=== PATIENT | male | born 2000 | race Two or more races ===

== ENCOUNTER 2020-10-22 20:17 | Emergency (ER) | payer SELFPAY ==
--- NOTE | 2020-10-22 20:45 | EDM.PDOC ---
ED HPI GENERAL MEDICAL PROBLEM - General Chief Complaint: Skin Complaint Stated Complaint: BUG BITES RT LEG, SWELLING Time Seen by Provider: 10/22/20 20:23 Source of Information: Reports: Patient History Limitations: Reports: No Limitations - History of Present Illness INITIAL COMMENTS - FREE TEXT/NARRATIVE: Presents reporting "infected bites". The patient states that 3 days ago he noted some firm red tender spots on the right lower leg and 2 on the right thigh. They are hard tender and red and not draining. He does not recall any injuries or bites. He does not know how he got them. He is otherwise healthy without any chronic medical problems and takes no medications. right leg Pain Score (Numeric/FACES): 9 - Related Data Allergies Allergy/AdvReac Type Severity Reaction Status Date / Time No Known Allergies Allergy Verified 10/22/20 20:28 Home Meds: Home Meds Clindamycin HCl 1 cap PO TID #30 capsule 10/22/20 [Rx] Mupirocin [Centany] 1 gm TP BID #1 tube 10/22/20 [Rx] Past Medical History HEENT History: Reports: None Cardiovascular History: Reports: None Respiratory History: Reports: None Gastrointestinal History: Reports: None Genitourinary History: Reports: None Musculoskeletal History: Reports: None Neurological History: Reports: None Psychiatric History: Reports: None Endocrine/Metabolic History: Reports: None Insulin Pump 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 ED EXAM, SKIN/RASH Exam: See Below Exam Limited By: No Limitations General Appearance: Alert, No Apparent Distress Ears: Normal External Exam Nose: Normal Inspection Throat/Mouth: Normal Inspection Head: Atraumatic, Normocephalic Neck: Normal Inspection Respiratory/Chest: No Respiratory Distress Cardiovascular: Normal Peripheral Pulses, Regular Rate, Rhythm, No Edema GI/Abdominal: Soft Neurological: Alert, Normal Cognition Psychiatric: Normal Affect, Normal Mood Skin: Warm, Dry, Intact, Normal Color, No Rash, Other (Lateral calf 7 x 5cm erythematous, firm, dry, swollen spot with a small dry scab in the center. Two additional on the right upper thigh, one 2 cm round, another 1 cm round, dry, pink, no swelling.) Associated features: Tenderness Lymphatic: No Adenopathy Course - Vital Signs Last Recorded V/S: Last Vital Signs Temp 36.2 C 10/22/20 20:25 Pulse 96 10/22/20 20:25 Resp 18 10/22/20 20:25 BP 131/89 10/22/20 20:25 Pulse Ox 97 10/22/20 20:25 Departure - Departure Time of Disposition: 20:48 Disposition: Home, Self-Care 01 Condition: Good Clinical Impression: Cellulitis Qualifiers: Site of cellulitis: extremity Site of cellulitis of extremity: lower extremity Laterality: right Qualified Code(s): L03.115 - Cellulitis of right lower limb - Discharge Information Instructions: Cellulitis, Adult, MRSA Infection, Self-Care, Adult Referrals: PCP,None [Primary Care Provider] - [facility] [Outside] [facility] [Outside] Additional Instructions: The following information is given to patients seen in the emergency department who are being discharged to home. This information is to outline your options for follow-up care. We provide all patients seen in our emergency department with a follow-up referral. The need for follow-up, as well as the timing and circumstances, are variable depending upon the specifics of your emergency department visit. If you don't have a primary care physician on staff, we will provide you with a referral. We always advise you to contact your personal physician following an emergency department visit to inform them of the circumstance of the visit and for follow-up with them and/or the need for any referrals to a consulting specialist. The emergency department will also refer you to a specialist when appropriate. This referral assures that you have the opportunity for follow-up care with a specialist. All of these measure are taken in an effort to provide you with optimal care, which includes your follow-up. Under all circumstances we always encourage you to contact your private physician who remains a resource for coordinating your care. When calling for follow-up care, please make the office aware that this follow-up is from your recent emergency room visit. If for any reason you are refused follow-up, please contact the Emergency Departme nt at and asked to speak to the emergency department charge nurse. Kit Doss [facility] [address] [place] [id number] 1. Take your antibiotic three times daily starting tonight. 2. Purchase chlorhexidine (Hibiclens) from the pharmacy and shower with it daily, taking care to scrub the groin and armpits well. 3. Apply mupirocin to scabs twice daily and with a clean, cotton tipped applicator to the posterior nares once daily. 4. Wash your clothing on the hot setting and dry in the dryer. Wash your towels and clothing each day. Sepsis Event Note (ED) - Evaluation Sepsis Screening Result: No Definite Risk - Focused Exam Vital Signs: Vital Signs Temp Pulse Resp BP Pulse Ox 10/22/20 20:25 36.2 C 96 18 131/89 97
== END 2020-10-22 21:10 | disposition home or self-care (01) ==
LOC: MW.ED 20:17
DX: L03.115 Cellulitis of right lower limb (principal)
CPT/HCPCS: 99283

== ENCOUNTER 2020-12-30 16:42 | Emergency (ER) | payer OTHER ==
--- NOTE | 2020-12-30 18:21 | CR ---
Indication: Knee pain after falling Technique: Three views left knee Comparison: None Findings: Bones: Lateral displacement of the patella with a mildly comminuted fracture of the medial aspect of the patella. Joint spaces: Unremarkable. Soft tissues: Moderate to large lipohemarthrosis. Soft tissue swelling overlying the knee. Impression: Lateral displacement of the patella. Mildly comminuted fracture of the medial aspect of the patella. Moderate to large lipohemarthrosis. Dictated by Debbie Turner MD @ Dec 30 2020 6:18PM Signed by Dr. Debbie Turner @ Dec 30 2020 6:20PM
[2020-12-30] MEDS ORDERED: HYDROmorphone 1 MG/ML Syringe IVPUSH ONE ×2 (19:06→20:15)
[2020-12-30] MEDS ORDERED: Bupivacaine 0.5% 10 ML SDV ONE (20:42)
[2020-12-30] MEDS ORDERED: Bupivacaine 0.5% 10 ML SDV INJECT ONE ×2 (20:42→20:43)
--- NOTE | 2020-12-30 21:39 | EDM.PDOC ---
ED HPI GENERAL MEDICAL PROBLEM - General Chief Complaint: Lower Extremity Injury/Pain Stated Complaint: LT KNEE INJURY Time Seen by Provider: 12/30/20 19:03 - History of Present Illness INITIAL COMMENTS - FREE TEXT/NARRATIVE: CHIEF COMPLAINT(S): Left knee pain HISTORY OF PRESENT ILLNESS: This is a 20-year-old man and without any significant past medical history who comes to the emergency department with a chief complaint of knee left knee pain. The patient states that he fell on his left knee and felt his kneecap dislocate. He states that he was walking on a rib for and slipped when this happened. He denies any numbness or tingling of his lower extremity but states that he does have 10 out of 10 pain on his knee. He states that there is swelling. He has not yet tried any pain medication. He states that any movement hurts his left knee. He denies any relieving factors. He denies any other injury. He denies any head injury, loss of consciousness, chest pain, shortness of breath, abdominal pain, nausea or vomiting. He denies any use of oral anticoagulation. REVIEW OF SYSTEMS: Constitutional: Denies fever, chills. Eyes: Denies eye pain Ears, Nose, Mouth, & Throat: Denies earache Cardiovascular: Denies chest pain Respiratory: Denies shortness of breath Gastrointestinal: Denies Nausea, vomiting, diarrhea, hematochezia. Genitourinary: Denies hematuria Skin:Denies a rash MSK: Left knee pain and injury Neurological: Denies blurred vision, numbness, tingling, weakness Psychiatric: Denies depression PAST MEDICAL HISTORY: As per history of present illness and as reviewed below otherwise noncontributory. SURGICAL HISTORY: As per history of present illness and as reviewed below otherwise noncontributory. SOCIAL HISTORY: As per history of present illness and as reviewed below otherwise noncontributory. FAMILY HISTORY: As per history of present illness and as reviewed below otherwise noncontributory. EXAMINATION OF ORGAN SYSTEMS/BODY AREAS: Constitutional: Blood pressure was 144/85, heart rate 89, respiratory rate 18 with an oxygen saturation 9 9% on room air. Temperature 36.4 General: Young man who appears to be in a moderate amount of pain Psychiatric: Appropriate mood and affect. Eyes: No scleral icterus or conjunctival erythema ENMT: Moist mucous membranes. No pharyngeal erythema Cardiovascular: Regular, rate, and rhythm. No gallops, murmurs, or rubs. Bilateral upper extremity and lower extremity pulses symmetric and intact. No peripheral edema. No JVD. Respiratory: Lungs clear to auscultation bilaterally. No wheezes, rales, or rhonchi. Gastrointestinal: Soft, non-tender, non-distended. Normoactive bowel sounds Genitourinary: No suprapubic tenderness Musculoskeletal: Range of motion limited at the left knee secondary to pain. There is significant swelling of the left knee. The patella does appear to be mildly displaced to the left however it is not completely dislocated. There is no posterior knee pain or bruising. However full examination is limited secondary to pain Skin: No lesions or abrasions. Neurological: Alert, GCS 15 distal sensation is intact MEDICAL DECISION MAKING AND COURSE IN THE ED WITH INTERPRETATION/REVIEW OF DIAGNOSTIC STUDIES: This is a 20-year-old man and without any significant past medical history who comes to the emergency department with left knee injury with possible patellar dislocation who is in a moderate amount of pain. At this time we will provide the patient with 1 mg of Dilaudid. We will obtain a left knee x-ray. I do not believe any other imaging is indicated. There is significant delay in obtaining x-ray as the emergency department was busy. Therefore I provided the patient with the Norfolk by mouth for continued pain. The radiological images were viewed by myself along with reading the report from the radiologist. Left knee x-ray reveals lateral displacement of the patella with a mildly comminuted fracture of the medial aspect of the patella. Moderate to large lipohemarthrosis. After imaging I did discuss results with the patient. I discussed them that we would need to try and relocate as much of the patella into its normal position. Therefore I did provide the patient with an additional dose of Dilaudid. At this time given the significant swelling I did offer arthrocentesis and hematoma block. He was amenable to this plan. On my reassessment the patient was able to hold his leg in extension and was able to flex mildly however there was significant amount of pain. ARTHROCENTESIS PROCEDURE NOTE Consent for Arthrocentesis: Risks and benefits discussed with patient and verbal consent obtained Site marked and prepared in sterile fashion. Wheel of bupivacaine placed. Bupivacaine then introduced into the joint space. 20 cc of blood were removed from the joint space. Complications: The patient tolerated the procedure well without any known complications Patella reduction Holding the leg in extension the lateral side of the patella was pressed medially with force it appeared to be closer to midline. After reduction we did place a knee brace for immobilization. I contacted Dr. Alvarenga at [facility] in [place] given that we do not have any orthopedic on-call. He recommended knee brace and follow-up outpatient. I did discuss this with the patient. Post reduction the patient continued to remain neurovascularly intact with palpable DP and PT pulses in the left lower extremity with distal sensation intact. He is to use Tylenol and Motrin and Norfolk for pain control. He is to follow-up with orthopedics within 3 to 5 days. He was amenable discharge at this time and had no further questions DISPOSITION: The patient was discharged home in stable condition. The patient will follow up with orthopedics within 3 to 5 days CONDITION: Fair PROCEDURES: Arthrocentesis of the left knee, patellar dislocation reduction FINAL IMPRESSION(S)/DIAGNOSES: 1. Acute left patellar dislocation 2. Acute left mildly comminuted fracture of the medial aspect of the patella Leodan Hdz M.D. DME: Knee immobilizer of the left Indication: Comminuted fracture of the patella Benefit: Immobilization Duration: Until follow-up with orthopedics DME: Crutches Indication: Nonweightbearing secondary to comminuted fracture of the patella Benefit: Nonweightbearing Duration: Until follow-up with orthopedics Left knee Pain Score (Numeric/FACES): 10 - Related Data Allergies Allergy/AdvReac Type Severity Reaction Status Date / Time No Known Allergies Allergy Verified 12/30/20 17:06 Home Meds: Home Meds Acetaminophen [Tylenol Extra Strength] 500 mg PO Q6HR #28 tablet 12/30/20 [Rx] Acetaminophen/HYDROcodone [Norfolk 325-5 MG] 1 tab PO Q6H PRN #10 tablet 12/30/20 [Rx] Ibuprofen 400 mg PO Q6HR #28 tablet 12/30/20 [Rx] Past Medical History HEENT History: Reports: None Cardiovascular History: Reports: None Respiratory History: Reports: None Gastrointestinal History: Reports: None Genitourinary History: Reports: None Musculoskeletal History: Reports: None Neurological History: Reports: None Psychiatric History: Reports: None Endocrine/Metabolic History: Reports: None Insulin 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 Hematologic History: Reports: None Immunologic History: Reports: None Oncologic (Cancer) History: Reports: None Dermatologic History: Reports: None - Infectious Disease History Infectious Disease History: Reports: None - Past Surgical History Head Surgeries/Procedures: Reports: None Social & Family History - Family History Family Medical History: No Pertinent Family History - Tobacco Use Tobacco Use Status *Q: Never Tobacco User - Caffeine Use Caffeine Use: Reports: None - Recreational Drug Use Recreational Drug Use: No Review of Systems - Review of Systems Review Of Systems: See Below ED EXAM, GENERAL - Physical Exam Exam: See Below Course - Vital Signs Last Recorded V/S: Last Vital Signs Temp 37 C 12/30/20 21:48 Pulse 72 12/30/20 21:48 Resp 16 12/30/20 21:48 BP 132/80 12/30/20 21:48 Pulse Ox 99 12/30/20 21:48 - Orders/Labs/Meds Meds: Medications Discontinued Medications Generic Name Dose Route Start Last Admin Trade Name Freq PRN Reason Stop Dose Admin Hydrocodone Bitart/Acetaminophen 2 tab 12/30/20 21:40 12/30/20 21:47 Norfolk 325-5 Mg PO 12/30/20 21:41 2 tab ONETIME ONE Administration Bupivacaine HCl 10 ml 12/30/20 20:43 12/30/20 20:43 Sensorcaine-Mpf 0.5% INJECT 12/30/20 20:44 10 ml ONETIME ONE Administration Bupivacaine HCl 10 ml 12/30/20 20:42 12/30/20 20:51 Sensorcaine-Mpf 0.5% INJECT 12/30/20 20:43 Not Given ONETIME ONE Bupivacaine HCl Confirm 12/30/20 20:42 12/30/20 20:51 Sensorcaine-Mpf 0.5% Administered 12/30/20 20:43 Not Given Dose 10 ml .ROUTE .STK-MED ONE Hydromorphone HCl 1 mg 12/30/20 19:06 12/30/20 19:10 Dilaudid IVPUSH 12/30/20 19:07 1 mg ONETIME ONE Administration Hydromorphone HCl 1 mg 12/30/20 20:15 12/30/20 20:43 Dilaudid IVPUSH 12/30/20 20:16 1 mg ONETIME ONE Administration Departure - Departure Time of Disposition: 21:38 Disposition: Home, Self-Care 01 Condition: Fair Clinical Impression: Patellar fracture, S/P arthrocentesis - Discharge Information *PRESCRIPTION DRUG MONITORING PROGRAM REVIEWED*: No *COPY OF PRESCRIPTION DRUG MONITORING REPORT IN PATIENT VIKTOR: No Prescriptions: Ibuprofen 400 mg PO Q6HR #28 tablet Acetaminophen/HYDROcodone [Norfolk 325-5 MG] 1 tab PO Q6H PRN #10 tablet PRN Reason: Breakthrough Pain Acetaminophen [Tylenol Extra Strength] 500 mg PO Q6HR #28 tablet Instructions: Crutch Use, Adult, [id number], How to Use a Knee Immobilizer, [id number], Pain Medicine Instructions, [id number], Patellar Fracture, Adult Referrals: PCP,None [Primary Care Provider] - Forms: ED Department Discharge Additional Instructions: You were evaluated today on an emergent basis. At this time you do have a fracture through your kneecap. There was a significant amount of swelling. For the swelling I do recommend you keep your leg elevated and use ice 20 minutes 4 times a day. Please use Tylenol and Motrin as described below. You may use Norfolk for severe pain. I would like you to follow-up with orthopedics within 1 week. If you have any new or worsening symptoms please return to the emergency department. We did do a knee injection for pain control and to remove some of the blood. Please keep the area clean. If you notice any worsening pain or redness please return to the emergency department. Please use: Tylenol 500mg every 6 hours (DO NOT TAKE MORE THAN 4000mg in 1 day) Ibuprofen 400mg every 6 hours (Take with food as it can cause ulcers, GI upset) Example schedule: 8:00 AM (Tylenol 500mg) 11:00 AM (Ibuprofen 400mg) 2:00 PM (Tylenol 500mg) 5:00 PM (Ibuprofen 400mg) In addition to Tylenol and Motrin you may use over the counter creams such as Voltaren Cream or Lidocaine Cream (Lidoderm) as needed 4 times a day for symptomatic relief. Ice the area 20 minutes 4 times per day [facility] [address], [address] [place] [address] The patient is informed of any results of their evaluation and diagnostic workup and all questions are answered. They are given discharge instructions and return precautions. The patient is stable for discharge. The patient states they understand and agree with the plan and that they will return if their symptoms get worse or if they have any new concerns. The following information is given to patients seen in the emergency department who are being discharged to home. This information is to outline your options for follow-up care. We provide all patients seen in our emergency department with a follow-up referral. The need for follow-up, as well as the timing and circumstances, are variable depending upon the specifics of your emergency department visit. If you don't have a primary care physician on staff, we will provide you with a referral. We always advise you to contact your personal physician following an emergency department visit to inform them of the circumstance of the visit and for follow-up with them and/or the need for any referrals to a consulting specialist. The emergency department will also refer you to a specialist when appropriate. This referral assures that you have the opportunity for follow-up care with a specialist. All of these measure are taken in an effort to provide you with optimal care, which includes your follow-up. Under all circumstances we always encourage you to contact your private physician who remains a resource for coordinating your care. When calling for follow-up care, please make the office aware that this follow-up is from your recent emergency room visit. If for any reason you are refused follow-up, please contact the [facility] Emergency Department at and asked to speak to the emergency department charge nurse. Sepsis Event Note (ED) - Evaluation Sepsis Screening Result: No Definite Risk
[2020-12-30] MEDS ORDERED: Acetaminophen/HYDROcodone 325-5 MG Tab PO ONE (21:40)
== END 2020-12-30 21:50 | disposition home or self-care (01) ==
LOC: MW.ED 16:42
DX: S82.042A Displaced comminuted fracture of left patella, initial encounter for closed fracture (principal); W19.XXXA Unspecified fall, initial encounter
CPT/HCPCS: 20610; 27560; 73562; 96374; 96376; 99283; A9270; J1170; J3490; 99284

== ENCOUNTER 2024-01-25 12:48 | Emergency (ER) | payer OTHER ==
[2024-01-25] MEDS: Acetaminophen/HYDROcodone 325-5 MG Tab PO ONE (13:46)
== END 2024-01-25 14:07 | disposition home or self-care (01) ==
LOC: MW.ED 12:48
DX: S92.422A Displaced fracture of distal phalanx of left great toe, initial encounter for closed fracture (principal); S93.402A Sprain of unspecified ligament of left ankle, initial encounter; Z75.8 Other problems related to medical facilities and other health care; W18.40XA Slipping, tripping and stumbling without falling, unspecified, initial encounter
CPT/HCPCS: 73610; 73620; 99283; A9270

== ENCOUNTER 2024-02-01 16:18 | Emergency (ER) | payer OTHER ==
[2024-02-01] MEDS: Ketorolac 30 MG/ML SDV IM ONE (17:49)
== END 2024-02-01 17:55 | disposition home or self-care (01) ==
LOC: MW.ED 16:18
DX: M79.675 Pain in left toe(s) (principal); Z75.8 Other problems related to medical facilities and other health care
CPT/HCPCS: 96372; 99283; J1885; 99282

== ENCOUNTER 2024-03-11 02:25 | Emergency (ER) | payer SELFPAY ==
[2024-03-11] MEDS: Ibuprofen 800 MG Tab PO ONE (02:40)
[2024-03-11] MEDS: Cephalexin 500 MG Cap PO ONE (02:40)
[2024-03-11] MEDS: Bacitracin Oint 1 GM U/D Packet TOP ONE (02:45)
== END 2024-03-11 02:45 | disposition home or self-care (01) ==
LOC: MW.ED 02:25
DX: L03.115 Cellulitis of right lower limb (principal); Z79.2 Long term (current) use of antibiotics; Z75.8 Other problems related to medical facilities and other health care
CPT/HCPCS: 99283; A9270

== ENCOUNTER 2024-03-11 22:34 | Emergency (ER) | payer SELFPAY ==
[2024-03-12 00:27] LABS: LACTIC ACID 0.4 mmol/L (0.4-2.0)
[2024-03-12 01:32] LABS: BASOPHILS ABSOLUTE AUTO 0.03 K/uL (0.00-0.20); BASOPHILS PERCENT AUTO 0.6 % (0.0-1.0); EOSINOPHILS ABSOLUTE AUTO 0.09 K/uL (0.00-0.45); EOSINOPHILS PERCENT AUTO 1.8 % (0.0-6.0); HEMATOCRIT 37.7 % (42.0-52.0); HEMOGLOBIN 12.9 g/dL (14.0-18.0); IMMATURE GRAN ABSOLUTE AUTO 0.01 K/uL (0.00-0.05); IMMATURE GRAN PERCENT AUTO 0.2 % (0.0-0.4); LYMPHOCYTES ABSOLUTE AUTO 1.19 K/uL (1.00-4.80); LYMPHOCYTES PERCENT AUTO 23.3 % (24.0-44.0); MEAN CORPUSCULAR HEMOGLOBIN 31.5 pg (28.0-32.0); MEAN CORPUSCULAR HGB CONC 34.2 g/dL (32.0-36.0); MONOCYTES ABSOLUTE AUTO 0.39 K/uL (0.00-0.80); MONOCYTES PERCENT AUTO 7.6 % (0.0-8.0); NEUTROPHILS PERCENT AUTO 66.5 % (41.0-71.0); PLATELET COUNT,PLT 253 K/uL (150-400); WHITE BLOOD CELL COUNT,WBC 5.11 K/uL (3.9-11.3)
[2024-03-12] MEDS: Sodium Chloride 0.9% 10 ML Syringe FLUSH PRN (01:38)
[2024-03-12] MEDS: Sodium Chloride 0.9% 2.5 ML Syringe FLUSH PRN (01:38)
[2024-03-12 02:01] LABS: A/G RATIO 1.1 (0.9-1.6); ALBUMIN 3.8 g/dL (3.4-5.0); BILIRUBIN TOTAL 0.3 mg/dL (0.2-1.0); CALCIUM 8.8 mg/dL (8.5-10.1); CARBON DIOXIDE,CO2 26.3 mmol/L (21.0-32.0); CREATININE 0.8 mg/dL (0.8-1.3); EST CRCL DRUG DOSING (CG) 151.65 mL/min; POTASSIUM,K 2.9 mmol/L (3.5-5.1); PROTEIN TOTAL,TP 7.2 g/dL (6.4-8.2); TSH ULTRASENSITIVE 1.84 uIU/mL (0.36-3.74)
[2024-03-12] MEDS: ceFAZolin 2 GM in Sodium Chloride 0.9% 50 ML IV ONE (02:02)
[2024-03-12] MEDS: Potassium Chloride 20 MEQ Tab.ER PO ONE (02:04)
== END 2024-03-12 02:49 | disposition home or self-care (01) ==
LOC: MW.ED 22:34
DX: L03.115 Cellulitis of right lower limb (principal); Z75.8 Other problems related to medical facilities and other health care; Z79.899 Other long term (current) drug therapy
CPT/HCPCS: 36415; 73590; 80053; 83605; 83880; 84443; 85025; 87040; 93970; 96365; 99284; A9270; J0690; J3490; 99282

== ENCOUNTER 2024-09-16 03:28 | Emergency (ER) | payer SELFPAY | END 2024-09-16 03:52 | LOC: MW.ED 03:28 | DX: F10.129 Alcohol abuse with intoxication, unspecified (principal); Z02.89 Encounter for other administrative examinations; F17.210 Nicotine dependence, cigarettes, uncomplicated; V89.2XXA Person injured in unspecified motor-vehicle accident, traffic, initial encounter; Y90.9 Presence of alcohol in blood, level not specified | CPT/HCPCS: 99283 ==